=== PATIENT | male | born 1965 | race Caucasian/White ===

== ENCOUNTER 2019-05-11 14:22 | Inpatient (IN) | payer MEDICARE ==
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
--- NOTE | 2019-05-11 15:16 | RADIOLOGY REPORT (SQ) ---
EXAM DESCRIPTION: CHEST 2 VIEWS COMPLETED DATE/TIME: 05/11/2019 3:06 pm REASON FOR STUDY: short of breath cough croupy COMPARISON: None. EXAM PARAMETERS: NUMBER OF VIEWS: two views TECHNIQUE: Digital Frontal and Lateral radiographic views of the chest acquired. RADIATION DOSE: NA LIMITATIONS: Low lung volumes. FINDINGS: LUNGS AND PLEURA: No opacities, masses or pneumothorax. No pleural effusion. MEDIASTINUM AND HILAR STRUCTURES: No masses or contour abnormalities. HEART AND VASCULAR STRUCTURES: Heart normal size. No evidence for failure. BONES: No acute findings. HARDWARE: None in the chest. OTHER: No other significant finding. IMPRESSION: Negative chest allowing for low lung volumes. TECHNICAL DOCUMENTATION: JOB ID: [id number] 2011 [employer]- All Rights Reserved Reading location - IP/workstation name: [email or web address]
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
[2019-05-11 15:36] LABS: ABSOLUTE EOSINOPHILS # (AUTO) 0.4 10^3/uL (0.0-0.6); ABSOLUTE LYMPHOCYTES (AUTO) 1.8 10^3/uL (0.5-4.7); ABSOLUTE MONOCYTES (AUTO) 0.6 10^3/uL (0.1-1.4); BASOPHILS % (AUTO) 0.2 % (0-2); EOSINOPHILS % (AUTO) 4.8 % (0-6); HEMATOCRIT 50.1 % (37.9-51.0); HEMOGLOBIN 16.4 g/dL (13.5-17.0); LYMPHOCYTES % (AUTO) 20.3 % (13-45); MEAN CORPUSCULAR HEMOGLOBIN 27.4 pg (27.0-33.4); MEAN CORPUSCULAR HGB CONC 32.7 g/dL (32.0-36.0); MEAN CORPUSCULAR VOLUME 84 fl (80-97); MONOCYTES % (AUTO) 6.8 % (3-13); PLATELET COUNT 165 10^3/uL (150-450); RED BLOOD COUNT 5.98 10^6/uL (4.35-5.55); RED CELL DISTRIBUTION WIDTH 14.1 % (11.5-14.0); SEGMENTED NEUTROPHILS % (AUTO) 67.9 % (42-78); TOTAL CELLS COUNTED % (AUTO) 100 %; WHITE BLOOD COUNT 8.8 10^3/uL (4.0-10.5)
[2019-05-11] MEDS ORDERED: IPRATROPIUM/ALBUTEROL 0.5-2.5 MG/3 ML AMPUL NEB ONE (15:50)
[2019-05-11 15:55] LABS: ALBUMIN 4.2 g/dL (3.5-5.0); ALKALINE PHOSPHATASE 65 U/L (38-126); ANION GAP 9 (5-19); ASPARTATE AMINO TRANSFERASE 36 U/L (17-59); BILIRUBIN,DIRECT 0.3 mg/dL (0.0-0.4); BILIRUBIN,TOTAL 0.9 mg/dL (0.2-1.3); BLOOD UREA NITROGEN 12 mg/dL (7-20); CALCIUM 10.1 mg/dL (8.4-10.2); CARBON DIOXIDE 29 mmol/L (22-30); CHLORIDE 101 mmol/L (98-107); GLUCOSE 126 mg/dL (75-110); POTASSIUM 4.3 mmol/L (3.6-5.0); TOTAL PROTEIN 7.3 g/dL (6.3-8.2)
[2019-05-11] MEDS ORDERED: LORAZEPAM INJ 2 MG/1 ML VIAL IV ONE (17:14)
[2019-05-11] MEDS ORDERED: ALBUTEROL SULFATE 0.083% NEB 2.5 MG/3 ML AMPUL NEB ONE (17:33)
[2019-05-11 18:09] LABS: ARTERIAL BLOOD BASE EXCESS 1.8 mmol/L; ARTERIAL BLOOD H2CO3 1.38 mmol/L (1.05-1.35); ARTERIAL BLOOD HCO3 27.3 mmol/L (20-24); ARTERIAL BLOOD O2 SATURATION 95.1 % (94-98); ARTERIAL BLOOD PCO2 45.9 mmHg (35-45); ARTERIAL BLOOD PH 7.39 (7.35-7.45); ARTERIAL BLOOD PO2 76.1 mmHg (80-100); ARTERIAL BLOOD TOTAL CO2 28.8 mmol/L (23-27)
--- NOTE | 2019-05-11 20:44 | RADIOLOGY REPORT (SQ) ---
CT CHEST ANGIOGRAPHY WITHOUT THEN WITH IV CONTRAST EXAM DATE: 05/11/2019 7:26 PM CDT HISTORY: Shortness of breath. COMPARISON: None. TECHNIQUE: CT angiogram of the chest with IV contrast. 3-D MIP images were obtained in coronal and sagittal reconstructions. This exam was performed according to our departmental dose-optimization program, which includes automated exposure control, adjustment of the mA and/or kV according to patient size and/or use of iterative reconstruction technique. FINDINGS: No filling defects are identified in the pulmonary trunk, main left and right pulmonary arteries, or the segmental branches. The thyroid gland is normal. No mediastinal or hilar adenopathy. The heart size is normal without pericardial effusion. The thoracic aorta is normal caliber. No consolidation, pleural effusion, or pneumothorax is identified. The visualized upper abdomen demonstrates no acute findings. No acute osseous findings are seen. IMPRESSION: No acute pulmonary embolism.
[2019-05-11] MEDS ORDERED: MAG HYDROX/AL HYDROX/SIMETH SUSP 30 ML UDCUP PO PRN (21:30)
[2019-05-11] MEDS ORDERED: ONDANSETRON HCL INJ/PF 4 MG/2 ML SDV IV PRN (21:30)
[2019-05-11] MEDS ORDERED: LEVALBUTEROL HCL NEB 0.63 MG/3 ML AMPUL NEB PRN (21:30)
[2019-05-11] MEDS ORDERED: ZOLPIDEM TARTRATE 5 MG TABLET PO PRN (21:30)
[2019-05-11] MEDS ORDERED: DOXAZOSIN MESYLATE 4 MG TABLET PO SCH (22:00)
[2019-05-11 22:29] LABS: FREE T3 3.88 pg/mL (2.77-5.27); FREE T4 (FREE THYROXINE) 1.36 ng/dL (0.78-2.19)
[2019-05-11 22:42] LABS: THYROID STIMULATING HORMONE 1.83 uIU/mL (0.47-4.68)
[2019-05-11] MEDS: FAMOTIDINE 20 MG TABLET PO SCH (22:55)
[2019-05-11] MEDS: HEPARIN SOD (PORCINE) 5,000 UNIT/ML 1 ML VIAL SUBCUT SCH (22:55)
--- NOTE | 2019-05-12 00:07 | PDOC H&P ---
History of Present Illness Admission Date/PCP: 05/11/2019 20:54 PARKER SANDS MD Patient complains of: Dyspnea History of Present Illness: PEDRO MUHAMMAD is a 53 year old male who presented to the emergency room with acute dyspnea. He admits gradually developing progressively worsening dyspnea over the course of the earlier part of the day that was associated with and worsened by a nonproductive cough. His dyspnea was worsened by his activities of daily living. He denies other associated or accompanying signs and symptoms. He admits prior similar episodes and for the last 2 weeks his O2 saturations have been less than 95%, though still asymptomatic, on several measurements. He has not identified any additional aggravating or ameliorating factors for his dyspnea. In the emergency room the patient was found to have an essentially unremarkable evaluation with the exception of persistent hypoxia. ABGs on room air showed a PO2 of 76 and the patient's O2 sat monitor while at rest in bed showed readings in the 90 to 92% range. Because of the patient's persistent hypoxia and his respiratory compromise secondary to a previous CVA he required BiPAP respiratory support. Patient was subsequently admitted to the hospital for further evaluation and treatment. 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 Denies: Ischemic CVA, Multiple Sclerosis, Seizures Endocrine Medical History: Reports: Obesity Denies: Diabetes Mellitus Type 1, Diabetes Mellitus Type 2, Hyperthyroidism, Hypothyroidism Renal/ Medical History: Denies: Chronic Kidney Disease, Nephrolithiasis Malignancy Medical History: Reports: None GI Medical History: Denies: Cirrhosis, Crohn's Disease, Hepatitis, Ulcerative Colitis Musculoskeltal Medical History: Denies: Arthritis, Gout Skin Medical History: Reports: Other - Stage II pressure ulcer Denies: Eczema, Psoriasis Psychiatric Medical History: Denies: Alcohol Dependency, Substance Abuse, Tobacco Dependency Traumatic Medical History: Reports: None Hematology: Denies: Anemia, Bleeding Tendencies Infectious Medical History: Reports: None Past Surgical History Past Surgical History: Reports: None, Other - .Craniotomy for evacuation of intracerebral hemorrhage and hemostasis Social History Information Source: Patient Lives with: Spouse/Significant other Smoking Status: Never Smoker Frequency of Alcohol Use: None Hx Recreational Drug Use: No Drugs: None Hx Prescription Drug Abuse: No - Advance Directive Resuscitation Status: Full Code Surrogate healthcare decision maker:: Desirae Muhammad Family History Family History: Hypertension. denies: CAD, CVA, DM, Malignancy Parental Family History Reviewed: Yes Children Family History Reviewed: No Sibling(s) Family History Reviewed.: Yes Medication/Allergy Home Medications: Lisinopril [Prinivil 10 mg Tablet] 10 mg PO DAILY 05/11/19 Terazosin HCl 10 mg PO QHS 05/11/19 Allergies/Adverse Reactions: No Known Allergies Allergy (Unverified 05/11/19 14:24) Review of Systems Constitutional: ABSENT: chills, fever(s) Eyes: ABSENT: visual disturbances, other - Eye pain Ears: ABSENT: hearing changes, other - Ear pain Nose, Mouth, and Throat: ABSENT: mouth pain, sore throat Cardiovascular: PRESENT: as per HPI, dyspnea on exertion. ABSENT: chest pain, edema, orthropnea, palpitations Respiratory: PRESENT: as per HPI, cough, dyspnea. ABSENT: hemoptysis, sputum Gastrointestinal: ABSENT: abdominal pain, constipation, diarrhea, nausea, vomiting Genitourinary: ABSENT: dysuria, hematuria Musculoskeletal: ABSENT: back pain, joint swelling, muscle weakness Integumentary: PRESENT: wounds - Decubitus ulcer. ABSENT: pruritus, rash Neurological: PRESENT: abnormal speech - Dysarthria and moderate expressive aphasia, other - Spastic right hemiparesis residual from previous CVA. ABSENT: confusion, convulsions, focal weakness, memory loss, syncope Psychiatric: ABSENT: anxiety, depression Endocrine: ABSENT: cold intolerance, heat intolerance Hematologic/Lymphatic: ABSENT: easy bleeding, easy bruising Allergic/Immunologic: ABSENT: seasonal rhinorrhea Physical Exam Vital Signs: Temp Pulse Resp BP Pulse Ox 98 F 84 20 140/98 H 98 05/11/19 14:27 05/11/19 14:27 05/11/19 18:00 05/11/19 14:27 05/11/19 18:00 Intake & Output 05/09/19 05/10/19 05/11/19 23:59 23:59 23:59 Weight 95.254 kg General appearance: PRESENT: no acute distress, cooperative, obese, other - On BiPAP Head exam: PRESENT: atraumatic, normocephalic Eye exam: PRESENT: conjunctiva pink. ABSENT: conjunctival injection, scleral icterus Ear exam: PRESENT: normal external ear exam. ABSENT: bleeding, drainage Mouth exam: PRESENT: dry mucosa, neck supple Neck exam: ABSENT: thyromegaly, tracheal deviation Respiratory exam: PRESENT: clear to auscultation janell, other - On BiPAP. ABSENT: rales, rhonchi, symmetrical - Left chest expansion greater than right, wheezes Cardiovascular exam: PRESENT: RRR. ABSENT: clicks, gallop, rubs Pulses: PRESENT: normal radial pulses, normal dorsalis pedis pul Vascular exam: PRESENT: normal capillary refill. ABSENT: pallor GI/Abdominal exam: PRESENT: normal bowel sounds, soft Rectal exam: PRESENT: deferred Extremities exam: PRESENT: other - Spastic right hemiparesis noted. ABSENT: joint swelling, pedal edema, tenderness Musculoskeletal exam: PRESENT: other - Spastic right hemiparesis noted. ABSENT: deformity, dislocation Neurological exam: PRESENT: alert, oriented to person, oriented to place, or iented to time, oriented to situation, motor sensory deficit - Spastic right hemiparesis present, aphasic - Mild expressive aphasia, other - Moderate dysarthria. ABSENT: CN II-XII grossly intact - Right hemiparesis present Psychiatric exam: PRESENT: appropriate affect, normal mood Skin exam: PRESENT: dry, warm, other - Stage II decubitus ulcers noted on bilateral midline buttocks. ABSENT: jaundice, rash, urticaria Results Laboratory Results: 05/11/19 15:19 05/11/19 15:19 05/11/19 05/11/19 05/11/19 15: 15: 17:49 WBC 8.8 RBC 5.98 H Hgb 16.4 Hct 50.1 MCV 84 MCH 27.4 MCHC 32.7 RDW 14.1 H Plt Count 165 Seg Neutrophils % 67.9 Carbonic Acid 1.38 H HCO3/H2CO3 Ratio 19:1 ABG pH 7.39 ABG pCO2 45.9 H ABG pO2 76.1 L ABG HCO3 27.3 H ABG O2 Saturation 95.1 ABG Base Excess 1.8 FiO2 31% Sodium 138.9 Potassium 4.3 Chloride 101 Carbon Dioxide 29 Anion Gap 9 BUN 12 Creatinine 0.78 Est GFR ( Amer) > 60 Glucose 126 H Calcium 10.1 Total Bilirubin 0.9 AST 36 Alkaline Phosphatase 65 Total Protein 7.3 Albumin 4.2 05/11/19 05/11/19 05/11/19 15:19 15:19 18:27 Troponin I < 0.012 < 0.012 NT-Pro-B Natriuret Pep 77 Impressions: Chest X-Ray 05/11/19 14:33 IMPRESSION: Negative chest allowing for low lung volumes. Chest/Abdomen CTA 05/11/19 19:26 IMPRESSION: No acute pulmonary embolism. Assessment and Plan - Diagnosis (1) Acute respiratory failure with hypoxia Is this a current diagnosis for this admission?: Yes Plan: Patient receive supplemental oxygen via nasal cannula and or noninvasive airway pressure support devices such as BiPAP in order to maintain an adequate O2 saturation of greater than 93%. Patient's O2 sat be monitored closely throughout his hospital course. Pulmonary function tests will be obtained. (2) Hypertension Qualifiers: Hypertension type: essential hypertension Qualified Code(s): I10 - Essential (primary) hypertension Is this a current diagnosis for this admission?: Yes Plan: Patient be continued on his usual antihypertensive regiment and his blood pressure will be monitored closely throughout his hospital course. A CBC metabolic profile and magnesium level will be obtained in the morning. (3) Hemiparesis affecting right side as late effect of cerebrovascular accident (CVA) Is this a current diagnosis for this admission?: Yes Plan: Patient will be treated with a specialty bed to reduce the risk of worsening decubitus ulcers. Speech therapy, PT and OT will be consulted. (4) Decubitus ulcer limited to breakdown of skin (stage 2) Qualifiers: Pressure injury location: buttock Laterality: unspecified laterality Qualified Code(s): L89.302 - Pressure ulcer of unspecified buttock, stage 2 Is this a current diagnosis for this admission?: Yes Plan: Wound cares will be given twice daily to help to heal and prevent further breakdown of the skin, the patient will use his current wound care ointment and it will be applied by his at their request. A surgical consult will be obtained if the wound shows evidence of worsening. - Time Time Spent with patient: 35 or more minutes Medications reviewed and adjusted accordingly: Yes Anticipated discharge: Home - Inpatient Certification Based on my medical assessment, after consideration of the patient's comorbidities, presenting symptoms, or acuity I expect that the services needed warrant INPATIENT care.: Yes I certify that my determination is in accordance with my understanding of Medicare's requirements for reasonable and necessary INPATIENT services [42 CFR 412.3e].: Yes Medical Necessity: Significant Comorbidiites Make Outpatient Treatment Too Risky, Need Close Monitoring Due to Risk of Patient Decompensation, Risk of Complication if Not Cared For in Hospital
--- NOTE | 2019-05-12 03:57 | ADVANCED CARE ---
- Diagnosis (1) Acute respiratory failure with hypoxia Diagnosis Current: Yes (2) Hypertension Diagnosis Current: Yes (3) Hemiparesis affecting right side as late effect of cerebrovascular accident (CVA) Diagnosis Current: Yes (4) Decubitus ulcer limited to breakdown of skin (stage 2) Diagnosis Current: Yes Attendance: The patient Theo Baez, his Desirae Baez and myself. Resuscitation Status: Full Code Discussion: After discussion centering around health care and the healthcare environment as well as their concerns due to the costs of certain aspects of healthcare we discussed the patient and his 's wishes for his resuscitation status. At this time they have elected to continue full code resuscitation status throughout this visit. Theo has named Desirae Baez as his designated surrogate medical decision maker. They may entertain the idea of a living will or an advanced directive document if they could examine such materials. Care Planning Goals: 1. Patient will remain full CODE STATUS for this visit. 2. Desirae Baez is the patient's designated surrogate medical decision-maker. Document(s) Completed: Following entries will be made to the patient's permanent medical record via this EMR entry: 1. Patient will remain full CODE STATUS for this visit. 2. Desirae Baez is the patient's designated surrogate medical decision-maker. Time Spent: 20 minutes
[2019-05-12] MEDS: HEPARIN SOD (PORCINE) 5,000 UNIT/ML 1 ML VIAL SUBCUT SCH ×2 (05:47→13:30)
[2019-05-12 06:48] LABS: HEMATOCRIT 47.5 % (37.9-51.0); HEMOGLOBIN 15.4 g/dL (13.5-17.0); MEAN CORPUSCULAR HEMOGLOBIN 27.4 pg (27.0-33.4); MEAN CORPUSCULAR HGB CONC 32.4 g/dL (32.0-36.0); MEAN CORPUSCULAR VOLUME 85 fl (80-97); PLATELET COUNT 138 10^3/uL (150-450); RED BLOOD COUNT 5.61 10^6/uL (4.35-5.55); WHITE BLOOD COUNT 8.6 10^3/uL (4.0-10.5)
[2019-05-12 07:08] LABS: ALBUMIN 3.9 g/dL (3.5-5.0); ALKALINE PHOSPHATASE 62 U/L (38-126); ANION GAP 10 (5-19); ASPARTATE AMINO TRANSFERASE 30 U/L (17-59); BILIRUBIN,DIRECT 0.2 mg/dL (0.0-0.4); BILIRUBIN,TOTAL 0.9 mg/dL (0.2-1.3); BLOOD UREA NITROGEN 11 mg/dL (7-20); CALCIUM 9.1 mg/dL (8.4-10.2); CARBON DIOXIDE 29 mmol/L (22-30); CHLORIDE 100 mmol/L (98-107); CHOLESTEROL 174.99 mg/dL (0-200); GLUCOSE 95 mg/dL (75-110); POTASSIUM 4.3 mmol/L (3.6-5.0); TOTAL PROTEIN 6.4 g/dL (6.3-8.2); TRIGLYCERIDES 139 mg/dL (<150)
[2019-05-12 07:18] LABS: DIRECT LDL 131 mg/dL (<100)
--- NOTE | 2019-05-12 08:19 | Progress Note Acknowledgement ---
Progress Note Acknowledgement Progess Note Acknowledgement: I, the undersigned member of the medical staff with appropriate privileges and with supervisory authority over [Nikko Andersen], a dependent practice allied health professional, acknowledge that I have reviewed the progress notes entered on this patient, and in my professional judgment believe that the assessment made and/or any care evidenced was appropriate
--- NOTE | 2019-05-12 08:19 | PDOC PROGRESS REPORT ---
Subjective Progress Note for:: 05/12/19 Subjective:: 05/12/2019-no complaints this a.m. Reason For Visit: ACUTE RESPIRATORY FAILURE WITH HYPOXIA Physical Exam Vital Signs: Temp Pulse Resp BP Pulse Ox 98.9 F 80 20 92/70 L 92 05/11/19 22:19 05/11/19 22:19 05/11/19 22:19 05/11/19 22:19 05/12/19 00:30 Intake & Output 05/11/19 05/12/19 05/13/19 06:59 06:59 06:59 Intake Total 0 Output Total 0 Balance 0 Weight 103 kg General appearance: PRESENT: no acute distress, well-developed, well-nourished Neck exam: ABSENT: carotid bruit, JVD, lymphadenopathy, thyromegaly Respiratory exam: PRESENT: decreased breath sounds, symmetrical, unlabored Cardiovascular exam: PRESENT: RRR. ABSENT: diastolic murmur, rubs, systolic murmur Pulses: PRESENT: normal dorsalis pedis pul Vascular exam: PRESENT: normal capillary refill GI/Abdominal exam: PRESENT: normal bowel sounds, soft. ABSENT: distended, guarding, mass, organolmegaly, rebound, tenderness Extremities exam: PRESENT: full ROM. ABSENT: calf tenderness, clubbing, pedal edema Neurological exam: PRESENT: alert, awake, oriented to person, oriented to place, oriented to time, oriented to situation, CN II-XII grossly intact. ABSENT: motor sensory deficit Psychiatric exam: PRESENT: appropriate affect, normal mood. ABSENT: homicidal ideation, suicidal ideation Skin exam: PRESENT: dry, intact, warm, other - Decubitus ulcers on the buttocks. ABSENT: cyanosis, rash Results Laboratory Results: 05/12/19 06:19 05/12/19 06:19 05/11/19 05/11/19 05/11/19 15:19 15:19 15:19 WBC 8.8 RBC 5.98 H Hgb 16.4 Hct 50.1 MCV 84 MCH 27.4 MCHC 32.7 RDW 14.1 H Plt Count 165 Seg Neutrophils % 67.9 Carbonic Acid HCO3/H2CO3 Ratio ABG pH ABG pCO2 ABG pO2 ABG HCO3 ABG O2 Saturation ABG Base Excess FiO2 Sodium 138.9 Potassium 4.3 Chloride 101 Carbon Dioxide 29 Anion Gap 9 BUN 12 Creatinine 0.78 Est GFR ( Amer) > 60 Glucose 126 H Calcium 10.1 Magnesium Total Bilirubin 0.9 AST 36 Alkaline Phosphatase 65 Total Protein 7.3 Albumin 4.2 Triglycerides Cholesterol LDL Cholesterol Direct VLDL Cholesterol HDL Cholesterol TSH 1.83 Free T4 1.36 Free T3 pg/mL 3.88 05/11/19 05/12/19 05/12/19 17:49 06:19 06:19 WBC 8.6 RBC 5.61 H Hgb 15.4 Hct 47.5 MCV 85 MCH 27.4 MCHC 32.4 RDW 14.0 Plt Count 138 L Seg Neutrophils % Carbonic Acid 1.38 H HCO3/H2CO3 Ratio 19:1 ABG pH 7.39 ABG pCO2 45.9 H ABG pO2 76.1 L ABG HCO3 27.3 H ABG O2 Saturation 95.1 ABG Base Excess 1.8 FiO2 31% Sodium 138.7 Potassium 4.3 Chloride 100 Carbon Dioxide 29 Anion Gap 10 BUN 11 Creatinine 0.77 Est GFR ( Amer) > 60 Glucose 95 Calcium 9.1 Magnesium 1.7 Total Bilirubin 0.9 AST 30 Alkaline Phosphatase 62 Total Protein 6.4 Albumin 3.9 Triglycerides 139 Cholesterol 174.99 LDL Cholesterol Direct 131 H VLDL Cholesterol 28.0 HDL Cholesterol 29 L TSH Free T4 Free T3 pg/mL 05/11/19 05/11/19 05/11/19 15:19 15:19 18:27 Troponin I < 0.012 < 0.012 NT-Pro-B Natriuret Pep 77 05/11/19 18:27 Troponin I NT-Pro-B Natriuret Pep 86 Impressions: Chest X-Ray 05/11/19 14:33 IMPRESSION: Negative chest allowing for low lung volumes. Chest/Abdomen CTA 05/11/19 19:26 IMPRESSION: No acute pulmonary embolism. Assessment and Plan - Diagnosis (1) Acute respiratory failure with hypoxia Is this a current diagnosis for this admission?: Yes Plan: Patient receive supplemental oxygen via nasal cannula and or noninvasive airway pressure support devices such as BiPAP in order to maintain an adequate O2 saturation of greater than 93%. Patient's O2 sat be monitored closely throughout his hospital course. Pulmonary function tests will be obtained. 05/12/2019-patient currently off BiPAP on nasal cannula with saturation 92 to 93%. Stable at this time will continue to follow (2) Hypertension Qualifiers: Hypertension type: essential hypertension Qualified Code(s): I10 - Essential (primary) hypertension Is this a current diagnosis for this admission?: Yes Plan: Patient be continued on his usual antihypertensive regiment and his blood pressure will be monitored closely throughout his hospital course. A CBC metabolic profile and magnesium level will be obtained in the morning. 05/12/2019-stable, continue current medications from home. (3) Hemiparesis affecting right side as late effect of cerebrovascular accident (CVA) Is this a current diagnosis for this admission?: Yes Plan: Patient will be treated with a specialty bed to reduce the risk of worsening decubitus ulcers. Speech therapy, PT and OT will be consulted. 05/12/2019-continue judicious turning of patient. Patient will be evaluated by speech physical and occupational therapy. Patient's at bedside advised patient care as well. (4) Decubitus ulcer limited to breakdown of skin (stage 2) Qualifiers: Pressure injury location: buttock Laterality: unspecified laterality Qualified Code(s): L89.302 - Pressure ulcer of unspecified buttock, stage 2 Is this a current diagnosis for this admission?: Yes Plan: Wound cares will be given twice daily to help to heal and prevent further breakdown of the skin, the patient will use his current wound care ointment and it will be applied by his at their request. A surgical consult will be obtained if the wound shows evidence of worsening. 05/12/2019-we will continue to turn patient judiciously. Continue wound care twice daily. Patient's at bedside and will help perform wound care with patient's home ointments and other treatment modalities. (5) Dyslipidemia Is this a current diagnosis for this admission?: Yes Plan: 05/12/2019-patient's LDL 131. I placed him on atorvastatin 40 mg p.o. daily. Continue to follow - Time Time Spent with patient: 15-24 minutes - Inpatient Certification Based on my medical assessment, after consideration of the patient's comorbidities, presenting symptoms, or acuity I expect that the services needed warrant INPATIENT care.: Yes I certify that my determination is in accordance with my understanding of Medicare's requirements for reasonable and necessary INPATIENT services [42 CFR 412.3e].: Yes Medical Necessity: Need Close Monitoring Due to Risk of Patient Decompensation, Other
[2019-05-12] MEDS ORDERED: LISINOPRIL 10 MG TABLET PO SCH (10:00)
[2019-05-12] MEDS ORDERED: DOCUSATE SODIUM 100 MG CAPSULE PO SCH (10:00)
[2019-05-12] MEDS: FAMOTIDINE 20 MG TABLET PO SCH (10:04)
[2019-05-12 16:28] VITALS: BP 115/75
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
[2019-05-12] MEDS ORDERED: ATORVASTATIN CALCIUM 40 MG TABLET PO SCH (22:00)
--- NOTE | 2019-05-14 18:49 | EKG REPORT ---
SEVERITY:- ABNORMAL ECG - SINUS RHYTHM PROBABLE RIGHT VENTRICULAR HYPERTROPHY INFERIOR INFARCT, AGE INDETERMINATE : Confirmed by: Mary Ann Danielle 14-May-2019 18:48:28
--- NOTE | 2019-05-15 13:04 | Pulmonary Function Test ---
Pulmonary Function Test Date of Procedure:: 05/12/19 INDICATION:: Dyspnea Referring Provider: Dr.Paul Borrego - Report Spirometry: Spirometry: pre-FVC: 3.40 L 71% pre-FEV:1 2.55 L 69% pre-FEV1/FVC %: 75 predicted: 77 [id number]%: 2.77 L 86% Impression: Spirometry suggestive of restrictive ventilatory defect. (Restrictive defect may mask the degree of obstruction.) Restrictive defect cannot be diagnosed on the basis of spirometry alone .if clinically indicated complete pulmonary function test would be warranted
== END 2019-05-12 17:05 | disposition home or self-care (01) | DRG 189 ==
LOC: ER 14:22 → EH 21:11 → 4N 22:05
PROVIDERS: ADMIT Emergency Medicine; ATTEND Emergency Medicine
PROC: 5A09357 Assistance with Respiratory Ventilation, Less than 24 Consecutive Hours, Continuous Positive Airway Pressure (ICD-10-PCS; principal; 2019-05-11)
DX: J96.01 Acute respiratory failure with hypoxia (principal); I69.351 Hemiplegia and hemiparesis following cerebral infarction affecting right dominant side; L89.322 Pressure ulcer of left buttock, stage 2; L89.312 Pressure ulcer of right buttock, stage 2; I10 Essential (primary) hypertension; E78.5 Hyperlipidemia, unspecified; E66.9 Obesity, unspecified; Z82.49 Family history of ischemic heart disease and other diseases of the circulatory system; I69.322 Dysarthria following cerebral infarction; Z68.33 Body mass index [BMI] 33.0-33.9, adult
CPT/HCPCS: 36415; 71046; 71275; 80053; 80061; 82803; 83735; 83880; 84439; 84443; 84481; 84484; 85025; 85027; 85379; 93005; 93010; 94010; 94640; 94660; 96374; 99285; J1644; J2060; J7620